=== PATIENT | female | born 1945 | race Caucasian/White ===

== ENCOUNTER 2021-06-04 11:50 | Outpatient (RCR) | payer MEDICARE, BC, SELFPAY ==
[2021-06-04 13:07] VITALS: BP 140/46; PULSE 62; RESP 20; TEMP 36.9; O2SAT 99
[2021-06-04] MEDS: ACETAMINOPHEN 325 MG TABLET 650 MG PO (13:09)
[2021-06-04] MEDS: FAMOTIDINE 20 MG TABLET PO (13:10)
[2021-06-04] MEDS: diphenhydrAMINE HCl CAP 25 MG CAPSULE PO (13:10)
--- NOTE | 2021-06-04 13:21 | PC.NURSE ---
Patient not vaccinated for COVID at this time.
[2021-06-04 14:24] VITALS: BP 156/51; PULSE 66; RESP 18; TEMP 36.4; O2SAT 100
--- NOTE | 2021-06-05 15:34 | PC.NURSE ---
Patient feeling better after covid infusion.
== END 2021-06-05 08:19 ==
LOC: AMCINF 11:50
PROVIDERS: PCP Nurse Practitioner Family; Visit Provider Internal Medicine Hematology & Oncology
DX: Z23 Encounter for immunization (principal); U07.1 COVID-19; I10 Essential (primary) hypertension
CPT/HCPCS: A9270; M0245; Q0245